=== PATIENT | female | born 2000 | race Caucasian/White ===

== ENCOUNTER 2023-01-17 21:01 | Emergency (ER) | payer SELFPAY ==
[~2023-01-17] VITALS: Ht 162.6 cm; Wt 75.0 kg
[2023-01-17 21:18] VITALS: O2SAT 96
[2023-01-17] MEDS ORDERED: CYCLOBENZAPRINE 10MG TABLET PO ONE (23:00)
[2023-01-17] MEDS ORDERED: KETOROLAC 30MG/ML VIAL IM ONE (23:00)
[2023-01-17 23:46] LABS: CLARITY URINE CLEAR (CLEAR); COLOR URINE YELLOW (YELLOW); KETONES URINE NEGATIVE (NEGATIVE); LEUKOCYTE ESTERASE URINE NEGATIVE (NEGATIVE); NITRITE URINE NEGATIVE (NEGATIVE); OCCULT BLOOD URINE 3+ (NEGATIVE); PROTEIN URINE 1+ (NEGATIVE); SPECIFIC GRAVITY URINE 1.024 (1.005-1.030)
[2023-01-17 23:50] VITALS: BP 111/67
[2023-01-18] MEDS ORDERED: LIDO700A15 TP (01:38)
[2023-01-18] MEDS ORDERED: NAPR-679 MT (01:38)
[2023-01-18] MEDS ORDERED: ACET-2708 MT (01:38)
[2023-01-18 02:18] VITALS: PULSE 99; RESP 18; TEMP 98.4
== END 2023-01-18 01:50 | disposition home or self-care (01) ==
LOC: ER 21:01
DX: S16.1XXA Strain of muscle, fascia and tendon at neck level, initial encounter (principal); S09.90XA Unspecified injury of head, initial encounter; V49.49XA Driver injured in collision with other motor vehicles in traffic accident, initial encounter; Y93.89 Activity, other specified; Y92.89 Other specified places as the place of occurrence of the external cause; Y99.8 Other external cause status
CPT/HCPCS: 99285; 70450; 81003; 81025; 72125; 96372; J1885